=== PATIENT | male | born 1970 | race African-American/Black ===

== ENCOUNTER 2017-02-07 14:53 | Emergency (ER) | payer OTHER ==
[~2017-02-07] VITALS: Ht 182.9 cm; Wt 95.3 kg
[2017-02-07 15:07] VITALS: BP 134/77
[2017-02-07] MEDS ORDERED: oxyCODONE/APAP 5/325 1 TAB TABLET PO ONE (16:00)
--- NOTE | 2017-02-07 18:07 | ED.ADGEN ---
Past History Past Medical History: Arthritis Past Surgical History: No Surgical History Alcohol Use: None Drug Use: None Adult General Chief Complaint Chief Complaint Right shoulder pain HPI HPI Patient is a 46-year-old Afro-[place]onegasque right admitted female with previous right rotator cuff surgical repair presents with intermittent right shoulder pain the past 2 weeks. Patient reports exacerbation of shoulder pain while raising arms overhead and removing week medics screen from door. Patient pain is anterior deep. It is described as throbbing and rated moderate to severe and worse with palpation and range of motion. Patient take 2 ibuprofen prior to ED arrival limited relief. Patient was evaluated for the same pain approximately one week and Y PCP and had imaging studies performed. Patient is awaiting outpatient orthopedic referral at this time. Patient denies motor weakness or loss of sensation of right upper extremity. No other acute symptoms or complaints. Review of Systems Review of Systems Review symptoms as per history of present illness. All other review symptoms are negative. Current Medications Current Medications Current Medications Medications (Trade) Dose Ordered Sig/Inder Start Time Stop Time Status Last Admin Dose Admin Oxycodone/ Acetaminophen (Percocet 5/325) 1 tab 1X ONCE 02/07/17 16:00 02/07/17 16:01 DC 02/07/17 15:40 1 TAB Allergies Allergies Allergies Coded Allergies Type Severity Reaction Last Updated Verified No Known Drug Allergies 02/07/17 No Physical Exam Physical Exam Constitutional: Well developed, well nourished, no acute distress, non-toxic appearance.[] Extremities: No tenderness, no cyanosis, no clubbing, ROM intact, no edema. [] Neurologic: Alert and oriented X 3, normal motor function, normal sensory function, no focal deficits noted. [] Psychologic: Affect normal, judgement normal, mood normal. [] Current Patient Data Vital Signs Vital Signs Date Time Temp Pulse Resp B/P (MAP) Pulse Ox O2 Delivery O2 Flow Rate FiO2 02/07/17 15:40 12 02/07/17 15:07 97.7 66 99 Room Air EKG EKG [] Radiology/Procedures Radiology/Procedures [Right shoulder: No obvious displaced fracture dislocation per preliminary ED read.] Course & Med Decision Making Course & Med Decision Making Pertinent Labs and Imaging studies reviewed. (See chart for details) [Shoulder pain consistent with acute exacerbation of right rotator cuff injury. Imaging study unremarkable. Pain address. Patient placed in sling with instructions to follow-up with the surgeon as scheduled. Patient verbalizes understanding and agreement discharge instructions prior to departure.] Final Impression Final Impression [#1 right shoulder pain #2 right rotator cuff injury] Problems: Imtiaz Disclaimer Dragbaylee Disclaimer This electronic medical record was generated, in whole or in part, using a voice recognition dictation system. MARIA ELENA HERNANDES DO Feb 07, 2017 18:07
--- NOTE | 2017-02-08 08:43 | RAD ---
Indication shoulder pain. Internally and externally rotated views of the right shoulder as well as 2Y views were obtained. No prior imaging is available for comparison There are lucencies associated with the right greater tubercle as well as the proximal humeral diaphysis. These have a chronic appearance. There are of doubtful clinical significance. No acute bony abnormality is seen. IMPRESSION: No acute bony finding
== END 2017-02-07 16:14 | disposition home or self-care (01) ==
LOC: ER 14:53
DX: S46.001A Unspecified injury of muscle(s) and tendon(s) of the rotator cuff of right shoulder, initial encounter (principal); M19.90 Unspecified osteoarthritis, unspecified site; X58.XXXA Exposure to other specified factors, initial encounter; Y93.89 Activity, other specified; Y99.8 Other external cause status; Y92.89 Other specified places as the place of occurrence of the external cause
CPT/HCPCS: 73030; 99284